=== PATIENT | female | born 1945 | race Caucasian/White ===

== ENCOUNTER 2016-08-18 15:42 | Observation (INO) | payer OTHER ==
[~2016-08-18] VITALS: Ht 162.6 cm; Wt 73.5 kg
[~2016-08-18 15:42] MED LIST: ASPIRIN EC81 M1 PO; AUGMENTIN 875 M1 TAB PO; CARDIZEM 60 MG60 MG PO; COUMADIN 6 MG TA6 MG PO; COUMADIN2 M1 PO; COUMADIN4 M1 PO; COZAAR25 M1 PO; DILTIAZEM 24HR240 MG PO; FERROUS SULFAT325 M1 PO; K-DUR 20MEQ TA20 MEQ PO; LASIX20 MG PO; LASIX40 MG PO; LOPRESSOR 25MG25 MG PO; METOPROLOL TART50 MG PO; PREDNISONE50 MG PO; PROAIR HFA0.09 MG/Ac PO; SYMBICORT 160/41 PUF INH; TOPROL XL50 M1 PO; TYLENOL WITH C1 EACH PO; WARFARIN SODIUM4 MG PO; ZOCOR40 M1 PO; [UNRECOGNIZED DRUG - OTHER] TOP
--- NOTE | 2016-08-18 16:21 | ED GENERAL ADULT ---
History of Present Illness General Chief Complaint: General Adult Stated Complaint: ABNORMAL LABS Source: patient Exam Limitations: no limitations Vital Signs & Intake/Output Vital Signs & Intake/Output Vital Signs Date Time Temp Pulse Resp B/P B/P Pulse O2 O2 Flow FiO2 Mean Ox Delivery Rate 08/19 0240 98.7 77 18 139/63 98 Room Air 08/18 2253 97.9 72 18 99/52 97 Room Air 08/18 2150 97.2 74 18 104/52 98 Room Air 08/18 2100 98.1 78 18 108/70 98 Room Air 08/18 1913 97.5 80 18 109/55 98 Room Air 08/18 1632 Room Air 08/18 1544 97.4 103 20 131/65 93 Room Air ED Intake and Output 08/19 0000 08/18 1200 Intake Total 360 Output Total Balance 360 Intake, Oral 360 Patient 162 lb Weight Weight Reported by Patient Measurement Method Allergies Coded Allergies: NO KNOWN ALLERGIES (07/17/15) Reconcile Medications Allopurinol 300 MG TABLET 1 TAB PO DAILY GOUT (Reported) Aspirin (Ecotrin*) 81 MG TABLET.DR 1 TAB PO DAILY HEART/BLOOD (Reported) Diltiazem HCl (Diltiazem 24HR ER) 240 MG CAP.ER.24H 1 CAP PO DAILY BP ( Reported) Furosemide (Lasix) 40 MG TABLET 1 TAB PO DAILY DIURETIC (Reported) Losartan Potassium (Cozaar) 25 MG TABLET 1 TAB PO QPM HIGH BLOOD PRESSURE ( Reported) Metoprolol Succ XL (Toprol Xl) 50 MG TAB.ER.24H 1 TAB PO DAILY BP (Reported) Simvastatin (Zocor*) 40 MG TABLET 1 TAB PO QPM CHOLESTEROL (Reported) Warfarin Sodium (Coumadin) 2 MG TABLET 1 TAB PO QMON BLOOD THINNER (Reported) Warfarin Sodium 4 MG TABLET 1 TAB PO AD BLOOD THINNER (Reported) Triage Note: PT TO ED FOR BLOOD TRANSFUSION. PT HAD OUT PATIENT LABS FOR INR CHECK FOR COUMADIN LEVEL, PT HAD TOLD DR ALVARADO THAT SHE HAS BEEN FEELING WEAK, SO A CBC WAS ALSO DRAWN. PT'S H&H WAS FOUND TO BE 6.[address] ALVARADO'S OFFICE CALLED PT AND ADVISED HER TO COME TO ED FOR BLOOD TRANSFUSION. PT DENIES PAIN, C/P, DIFF BREATHING. APPEARS PALE. Triage Nurses Notes Reviewed? yes Onset: Gradual Duration: hour(s):, continues in ED Severity: moderate HPI: Patient presents for evaluation of generalized weakness as the results of an anemia. She states that her doctor sent her for blood counts today along with her usual INR due to her weakness. She was told of the blood counts are very low and that she should go to the emergency department for evaluation. The patient is describing a mild to moderate generalized weakness but otherwise denies any associated bleeding melena or pain. (GAMA WILLIS,EMILIANA Jorge) Past History Travel History Traveled to [place] past 21 day No Medical History Any Pertinent Medical History? 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 Relation not specified for: FH: hyperthyroidism Graves' disease Hx Contributory? No (GAMA WILLIS,EMILIANA Jorge) Review of Systems Review of Systems Constitutional: Reports: weakness. EENTM: Reports: no symptoms. Respiratory: Reports: no symptoms. Cardiovascular: Reports: no symptoms. GI: Reports: no symptoms. Genitourinary: Reports: no symptoms. Musculoskeletal: Reports: no symptoms. Skin: Reports: no symptoms. Neurological/Psychological: Reports: no symptoms. Hematologic/Endocrine: Reports: no symptoms. Immunologic/Allergic: Reports: no symptoms. All Other Systems: Reviewed and Negative (GAMA WILLIS,EMILIANA Jorge) Physical Exam Physical Exam General Appearance: see below Comments: Gen.: Well-nourished, well-developed, no acute respiratory distress. Head: Normocephalic, atraumatic. Eyes: Normal inspection bilaterally, pale palpebral conjunctiva Ears: Normal inspection bilaterally Nose: Normal inspection Throat/mouth : Moist mucosa Neck: Supple, full range of motion, no goiter Heart: Regular rate and rhythm, no murmurs rubs or gallops Lungs: Clear to auscultation bilaterally with normal air entry Chest: Nontender Back: Normal range of motion Abdomen: Soft, nontender, nondistended, normal bowel sounds Extremities: Normal range of motion grossly, equal radial pulses, no cyanosis clubbing or edema Neurologic: Cranial nerves grossly intact, speech is clear Skin: warm and dry Psychiatric: Calm, cooperative, no apparent delusions or hallucinations Rectal: Heme-negative stool residue Core Measures ACS in differential dx? No CVA/TIA Diagnosis: No Severe Sepsis Present: No Septic Shock Present: No (GAMA WILLIS,EMILIANA Jorge) Progress Differential Diagnoses I considered the following diagnoses in my evaluation of the patient: GI bleed, iron deficiency, other occult blood loss Plan of Care: Orders Procedure Date/time Status Regular Diet 08/19 B Active Discharge Patient 08/19 0336 Active BLOOD PRODUCT PICKUP 08/18 212 Active Intake & Output 08/18 191 Active Misc Message 08/18 184 Active ED Holding Orders 08/18 1845 Active Vital Signs 08/18 184 Active Code Status 08/[address] in observation 08/18 1801 Active Patient Data 08/18 180 Active BLOOD PRODUCT PICKUP 08/18 1747 Active TOTAL IRON BINDING CAPACITY 08/18 1621 Complete RETICULOCYTE COUNT 08/18 1621 Complete FERRITIN 08/18 1621 Complete SERUM IRON 08/18 1621 Complete TYPE & SCREEN (NOT X-MATCH) 08/18 1621 Complete LEUKOCYTE POOR (PACKED CELLS) 08/18 1621 Active Laboratory Tests 08/18/16 1625: Iron 29 L, TIBC 522 H, Ferritin 8.4 L, Retic Count 3.67 H Initial ED EKG: none Hand-Off Endorsed To: TARIK MCFADDEN MD Endorsed Time: 1915 Pending: CT (GAMA WILLIS,EMILIANA Jorge) Departure Departure Condition: Stable Clinical Impression Primary Impression: Symptomatic anemia Referrals: MERCY CURTIS MD (PCP/Family) Departure Forms: Customer Survey General Discharge Information Observation Note Physician Advisor Notified: EMILIANA MARTINEZ DO Place Patient In: ED Observation Rationale for Observation: My rational for observation is as follows patient has symptomatic anemia secondary to a seriously low hematocrit and hemoglobin. This has substantially decreased her oxygen carrying capacity of her blood and has resulted in generalized weakness. Should she continue to drop her hematocrit and hemoglobin she would be at risk of chest pain, shortness of breath, palpitations and syncope. I feel she now requires urgent blood transfusion and reevaluation of hematocrit and hemoglobin for appropriate response. She should also be reevaluated clinically to assess for improvement in her generalized weakness. I do not feel she is a good candidate for outpatient transfusion given her generalized weakness and the possibility of provoking the adverse consequences noted above.. (EMILIANA MALLOY MD) Departure Disposition: HOME OR SELF CARE (TARIK MCFADDEN MD) Critical Care Note Critical Care Note Critical Care Time: non-applicable (TARIK MCFADDEN MD) ED Attending Observation Initial Observation Note: I have seen and personally examined SUE LEW on 08/18/16 at 1801. I agree with the current emergency department documentation. The disposition (admission or discharge) is uncertain at this time, she needs a period of observation for the following reason(s): SEE OBSERVATION NOTE. The ED Nurse caring for this patient has been personally informed as to what the patient is being observed for. (EMILIANA MALLOY MD) Observation Re-Evaluation: I have reevaluated SUE LEW on 08/18/16 at 2157. The physical findings that support the continued need to observe this patient include transfusion for symptomatic anemia. Observation Discharge: I have reevaluated SUE LEW on 08/19/16 at 0337. The patient is: (x): Stable for discharge (): To be admitted to Nursing Floor (): To be placed in Observation on Nursing Floor (): For transfer to other facility The patient was being observed for symptomatic anemia As a result of that observation, I have determined patient may be discharged home with outpatient follow up. (TARIK MCFADDEN MD)
[2016-08-18] MEDS ORDERED: COUMADIN2 M1 PO (16:35)
[2016-08-18] MEDS ORDERED: WARFARIN SODIUM4 M1 PO (16:35)
[2016-08-18] MEDS ORDERED: LASIX40 M1 PO (16:36)
[2016-08-18] MEDS ORDERED: ALLOPURINOL300 M1 PO (16:37)
[2016-08-19 02:40] VITALS: BP 139/63
[2016-08-20] MEDS ORDERED: FERROUS SULFAT325 M2 PO (09:48)
== END 2016-08-20 20:18 ==
LOC: ERH 15:42 → ERHI 18:01
PROVIDERS: ADMIT Emergency Medicine
DX: D64.9 Anemia, unspecified (principal); Z95.2 Presence of prosthetic heart valve; Z79.01 Long term (current) use of anticoagulants; Z72.0 Tobacco use; I13.0 Hypertensive heart and chronic kidney disease with heart failure and stage 1 through stage 4 chronic kidney disease, or unspecified chronic kidney disease; N18.3 Chronic kidney disease, stage 3 (moderate); I50.32 Chronic diastolic (congestive) heart failure; I48.91 Unspecified atrial fibrillation; I48.92 Unspecified atrial flutter; I35.0 Nonrheumatic aortic (valve) stenosis; I24.8 Other forms of acute ischemic heart disease; I73.9 Peripheral vascular disease, unspecified; I25.10 Atherosclerotic heart disease of native coronary artery without angina pectoris; E78.5 Hyperlipidemia, unspecified; J44.9 Chronic obstructive pulmonary disease, unspecified
CPT/HCPCS: 86920; 96374; 96376; P9016

== ENCOUNTER 2016-08-19 13:06 | Inpatient (IN) | payer OTHER ==
[~2016-08-19] VITALS: Ht 162.6 cm; Wt 71.2 kg
[~2016-08-19 13:06] MED LIST changes: +ALLOPURINOL300 M1 PO; +LASIX40 M1 PO; +WARFARIN SODIUM4 M1 PO
--- NOTE | 2016-08-19 13:30 | ED AMS/SEIZURE/WEAK/DIZZY ---
History of Present Illness General Chief Complaint: General Adult Stated Complaint: SENT BY ANA FOR ADMISSION Source: patient, old records Exam Limitations: no limitations Vital Signs & Intake/Output Vital Signs & Intake/Output Vital Signs Date Time Temp Pulse Resp B/P B/P Pulse O2 O2 Flow FiO2 Mean Ox Delivery Rate 08/19 1712 75 18 122/58 96 08/19 1523 96.0 82 20 131/63 98 Room Air 08/19 1323 97.2 97 20 148/70 96 Room Air Allergies Coded Allergies: NO KNOWN ALLERGIES (07/17/15) Reconcile Medications Allopurinol 300 MG TABLET 1 TAB PO DAILY GOUT (Reported) Aspirin (Ecotrin*) 81 MG TABLET.DR 1 TAB PO DAILY HEART/BLOOD (Reported) Diltiazem HCl (Diltiazem 24HR ER) 240 MG CAP.ER.24H 1 CAP PO DAILY BP ( Reported) Furosemide (Lasix) 40 MG TABLET 1 TAB PO DAILY DIURETIC (Reported) Losartan Potassium (Cozaar) 25 MG TABLET 1 TAB PO QPM HIGH BLOOD PRESSURE ( Reported) Metoprolol Succ XL (Toprol Xl) 50 MG TAB.ER.24H 1 TAB PO DAILY BP (Reported) Simvastatin (Zocor*) 40 MG TABLET 1 TAB PO QPM CHOLESTEROL (Reported) Warfarin Sodium (Coumadin) 2 MG TABLET 1 TAB PO QMON BLOOD THINNER (Reported) Warfarin Sodium 4 MG TABLET 1 TAB PO AD BLOOD THINNER (Reported) Triage Note: PT PRESENTS TO ER STATING DR PEREZ SENT HER IN FOR ADMISSION. PT STATES SHE WAS HERE YESTERDAY FOR A BLOOD TRANSFUSION AND WENT HOME BECAUSE SHE DIDN'T WANT TO STAY. PT DENIES ANY COMPLAINTS BUT STATES DOCTOR WANTED TO FIND SOURCE OF BLEEDING. PT DENIES SOB, PAIN, OR ANY RECTAL BLEEDING Triage Nurses Notes Reviewed? yes Onset: Abrupt Duration: day(s): (1), constant Timing: recent history Injury Environment: home Severity: mild Severity Numbers: 1 No Modifying Factors: none Associated Symptoms: DENIES HPI: 71-year-old female with history of A. 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 Patient was seen here yesterday after she was found to be anemic require 2 units of blood. The patient had a negative guaiac exam at the time she denies any black or bloody stools no chest pain shortness of breath, pain nausea vomiting. She denies any vaginal bleeding no known source of her anemia. The patient's Coumadin is being withheld as her levels were elevated and the source of her anemia was not known she was sent in by her grinder set up operator jig for further workup. The patient is without any complaints currently (SYEDA KRAUSE) Past History Travel History Traveled to [place] past 21 day No Medical History Any Pertinent Medical History? 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 Relation not specified for: FH: hyperthyroidism Graves' disease Hx Contributory? No (SYEDA KRAUSE) Review of Systems Review of Systems Constitutional: Reports: see HPI. Comments Review of systems: See HPI, All other systems negative. Constitutional, no chills no fever, no malaise no weight loss HEENT: No visual changes no sore throat no congestion, no ear pain Cardiovascular: No chest pain , no palpitation Skin: no rashes, no change in skin Respiratory: No dyspnea no cough no sputum no hemoptysis GI: No nausea no vomiting, no diarrhea, : No dysuria No hematuria, no frequency Muscle skeletal: No joint pain, no joint swelling, no back pain, no neck pain, Neurologic: no headache Psych: No stress Heme/endocrine: No bruising no bleeding Immunology: No lymphadenopathy (SYEDA KRAUSE) Physical Exam Physical Exam General Appearance: well developed/nourished, no apparent distress, alert, awake Comments: Well-developed well-nourished person in no acute distress HEENT: Normal EENT exam; PERRL, EOMI, HEAD is atraumatic. moist mucous membranes. Neck: Supple, no lymphadenopathy, normal range of motion Back: Nontender, no CVA tenderness. Full range of motion Cardiovascular: Regular rate and rhythms no murmurs rubs Respiratory: Chest nontender.There were no bony deformities, no asymmetry. No respiratory distress. Patient speaking in full complete sentences. Breath sounds clear to auscultation bilaterally: NO W/R/R Abdomen: Soft, nontender nondistended, no appreciable organomegaly. Normal bowel sounds. No rebound/guarding, Extremity: No edema, full range of motion of extremities Neuro: Alert oriented x3, motor sensory normal, There were no obvious focal neurologic abnormalities. Skin: No appreciable rash on exposed skin, skin is warm and dry. Psych: Mood and affect is normal, memory and judgment is normal. Core Measures ACS in differential dx? Yes CVA/TIA Diagnosis: No Severe Sepsis Present: No Septic Shock Present: No (MICHAEL ANDREWS,SYEDA) Progress Differential Diagnosis: ANEMIA, RETROPERITONEAL HEMATOMA, ELECTROLYTE ABNORMALITY Plan of Care: Orders Procedure Date/time Status Heart Healthy Diet 08/20 B Active LIPID PANEL 08/20 0600 Active BASIC ELECTROLYTES PLUS BUN&CR 08/20 0600 Active TROPONIN LEVEL 08/20 0400 Active PROTHROMBIN TIME 08/20 0400 Active CBC WITHOUT DIFFERENTIAL 08/20 0400 Active EKG 08/20 0400 Active Heart Healthy Diet 08/19 D Complete TROPONIN LEVEL 08/19 2200 Active CBC WITHOUT DIFFERENTIAL 08/19 2200 Active EKG 08/19 2200 Active Code Status 08/19 1715 Active ED Holding Orders 08/19 1604 Active Admit to inpatient 08/19 1604 Active Vital Signs 08/19 1604 Active Code Status 08/19 1604 Complete ECHOCARDIOGRAM 08/19 1602 Active OXYGEN SETUP (GEN) 08/19 1600 Active Pathway - chart 08/19 1600 Active House Staff 08/19 1600 Active Patient Data 08/19 1533 Active PHOSPHORUS 08/19 1339 Complete MAGNESIUM 08/19 1339 Complete MISTAKE 08/19 1335 Active Telemetry/Rn Primary Care 08/19 1329 Active TROPONIN LEVEL 08/19 1329 Complete PARTIAL THROMBOPLASTIN TIME 08/19 1329 Complete PROTHROMBIN TIME 08/19 1329 Complete COMPREHENSIVE METABOLIC PANEL 08/19 1329 Complete CBC WITHOUT DIFFERENTIAL 08/19 1329 Complete EKG 08/19 1329 Active Lab Add-on Test 08/19 UNK Active VTE Mechanical Prophylaxis 08/19 UNK Active Vital Signs 08/19 UNK Active Intake & Output 08/19 UNK Active Hemoccult 08/19 UNK Active Current Medications Sig/Darlene Start time Last Medication Dose Stop Time Status Admin Allopurinol 300 MG DAILY 08/20 1000 AC (Zyloprim) Diltiazem HCl 240 MG DAILY 08/20 1000 AC (Cardizem CD) Ferrous Sulfate 325 MG BID 08/20 1000 UNVr (Feosol) Furosemide 40 MG DAILY 08/20 1000 AC (Lasix) Metoprolol Succinate 50 MG DAILY 08/20 1000 AC (Toprol Xl) Atorvastatin Calcium 20 MG 1700 08/19 1700 AC (Lipitor) Acetaminophen 650 MG Q6P PRN 08/19 1600 AC (Tylenol) Acetaminophen/ 1 TAB Q6P PRN 08/19 1600 AC Hydrocodone Bitart (Vicodin) Morphine Sulfate 4 MG Q4P PRN 08/19 1600 AC (Morphine) Laboratory Tests 08/19/16 1339: Anion Gap 11, Estimated GFR 32 L, BUN/Creatinine Ratio 19.4, Glucose 97, Calcium 9.8, Phosphorus 3.0, Magnesium 2.1, Total Bilirubin 0.6, AST 24, ALT 22, Alkaline Phosphatase 131 H, Troponin I 0.29 *H, Total Protein 6.6, Albumin 4.0, Globulin 2.6, Albumin/Globulin Ratio 1.5, PT 14.3 H, INR 1.37 H, APTT 28, CBC w Diff NO MAN DIFF REQ, RBC 3.71 L, MCV 81.9, MCH 26.7 L, RDW 18.6 H, MPV 9.1 , Gran % 66.9, Lymphocytes % 17.0 L, Monocytes % 9.1, Eosinophils % 6.7 H, Basophils % 0.3, Absolute Granulocytes 5.8, Absolute Lymphocytes 1.5, Absolute Monocytes 0.8 H, Absolute Eosinophils 0.6, Absolute Basophils 0, PUBS MCHC 32.5 L Labs ordered old records reviewed patient's H&H yesterday 6 and guaiac was negative case discussed with Dr. MARTINEZ who spoke with dr perez Discussed with the patient on her lab results she again is resting comfortably in no apparent distress despite elevated troponin case is discussed with -given lab findings he does not believe patient requires urgent colonoscopy case was discussed with Dr. perez agrees with plan, no heparin at this time, pt has no complaints CASE D/W DR WESTFALL WILL ADMIT (SYEDA KRAUSE) Initial ED EKG: nsr at 80, nonspecific st seg changes, normal axis Prior EKG: changed (09/2014) (SYEDA KRAUSE) Departure Departure Time of Disposition: 1510 Disposition: STILL A PATIENT Condition: Stable Clinical Impression Primary Impression: Elevated troponin Secondary Impressions: Acute electrocardiogram changes, Anemia, Subtherapeutic international normalized ratio (INR) Referrals: MERCY CURTIS MD (PCP/Family) Departure Forms: Customer Survey General Discharge Information Admission Note Spoke With: IKE WESTFALL MD Documentation of Exam: Documentation of any treatments & extenuating circumstances including Concerns Regarding Discharge (functional status, medication knowledge or non-compliance, living conditions, etc.) that warrant an admission rather than observation: [ Trend labs turn troponin telemetry monitoring EKG cardiology consult possible GI consult, patient is subtherapeutic INR premature discharge and be medically harmful (SYEDA KRAUSE) PA/MANAGER CHINESE Co-Sign Statement Statement: ED Attending supervision documentation- [X] I saw and evaluated the patient. I have also reviewed all the pertinent lab results and diagnostic results. I agree with the findings and the plan of care as documented in the PA's/MANAGER CHINESE's documentation. [X] I have reviewed the ED Record and agree with the PA's/MANAGER CHINESE's documentation. [] Additions or exceptions (if any) to the PAs/MANAGER CHINESE's note and plan are summarized below: [] (EMILIANA MARTINEZ DO
[2016-08-19 13:59] LABS: PT 14.3 SEC (9.4-12.5); PTT 28 SEC (25-37)
[2016-08-19 14:02] LABS: ABSOLUTE BASOPHIL COUNT 0 /CUMM (0.0-0.2); ABSOLUTE EOSINOPHIL COUNT 0.6 /CUMM (0.0-0.7); ABSOLUTE GRANULOCYTE CT 5.8 /CUMM (1.4-6.5); ABSOLUTE LYMPH COUNT 1.5 /CUMM (1.2-3.4); ABSOLUTE MONOCYTE COUNT 0.8 /CUMM (0.10-0.60); BASOPHIL % 0.3 % (0.0-2.0); EOSINOPHIL % 6.7 % (0-5); GRANULOCYTE % 66.9 % (42.2-75.2); MEAN CORPUSCULAR HGB 26.7 PG (27.0-31.0); MEAN CORPUSCULAR HGB CONC 32.5 G/DL (33.0-37.0); MEAN CORPUSCULAR VOLUME 81.9 FL (81.0-99.0); MEAN PLATELET VOLUME 9.1 FL (7.4-10.4); PLATELET COUNT 212 /CUMM (130-400); RBC DISTRIBUTION WIDTH 18.6 % (11.5-14.5); WHITE BLOOD CELL COUNT 8.7 /CUMM (4.8-10.8)
[2016-08-19 14:27] LABS: RED BLOOD CELL CT 3.71 /CUMM (4.20-5.40)
[2016-08-19 14:28] LABS: HEMATOCRIT 30.4 % (37-47)
--- NOTE | 2016-08-19 15:40 | History & Physical ---
NADIRAAURELIO 08/19/16 1538: General Information and HPI MD Statement: I have seen and personally examined SUE LEW and documented this H&P. The patient is a 71 year old F who presented with a patient stated chief complaint of [sent in by Dr. Dunham]. Source of Information: patient Exam Limitations: no limitations History of Present Illness: 71-year-old female with a past medical history of aortic replacement with metallic valve, currently on Coumadin, hypertension, atrial flutter, CHF, CKD stage III, peripheral vascular disease status post left carotid endarterectomy with internal jugular weaning patch angioplasty in July 2015 was sent in by her adobe layer helper Dr. Tonny Costello for evaluation. She states that she was getting routine blood workl done for her INR on 08/18/16, when she c/o wekaness in her lwoer extermities which prompted her adobe layer helper Dr. Dunham, to order CBC which showed taht she was anemic to 6. She states she was asked to come to the ED. She was guiac negative, and was transfused with 2 PRBCs, and discharged home. She called Dr. Dunham's office this AM to inquire when she can resume her Coumadin because her INR was supratherpeutic to 6.0 last and Coumadin was on hold since. She was advised to go to he ER for further evaluation. Patientd denies any CP, SOB, LOUIS, nausea, vomiting, palpitations, dizziness, black tarry stools, weight loss, night sweats, recent history of infection, sore throat, fever, chills. Allergies/Medications Allergies: Coded Allergies: NO KNOWN ALLERGIES (07/17/15) Home Med list Allopurinol 300 MG TABLET 1 TAB PO DAILY GOUT (Reported) Aspirin (Ecotrin*) 81 MG TABLET.DR 1 TAB PO DAILY HEART/BLOOD (Reported) Diltiazem HCl (Diltiazem 24HR ER) 240 MG CAP.ER.24H 1 CAP PO DAILY BP ( Reported) Furosemide (Lasix) 40 MG TABLET 1 TAB PO DAILY DIURETIC (Reported) Losartan Potassium (Cozaar) 25 MG TABLET 1 TAB PO QPM HIGH BLOOD PRESSURE ( Reported) Metoprolol Succ XL (Toprol Xl) 50 MG TAB.ER.24H 1 TAB PO DAILY BP (Reported) Simvastatin (Zocor*) 40 MG TABLET 1 TAB PO QPM CHOLESTEROL (Reported) Warfarin Sodium (Coumadin) 2 MG TABLET 1 TAB PO QMON BLOOD THINNER (Reported) Warfarin Sodium 4 MG TABLET 1 TAB PO AD BLOOD THINNER (Reported) Past History Travel History Traveled to [place] past 21 day No Medical History Neurological: NONE EENT: NONE Cardiovascular: AFIB, aortic stenosis, CAD, diastolic CHF, hypertension, hyperlipidemia, PVD, AORTIC VALVE REPLACEMENT Respiratory: COPD Gastrointestinal: NONE Hepatic: NONE Renal: NONE Musculoskeletal: NONE Psychiatric: NONE Endocrine: NONE Blood Disorders: NONE Cancer(s): NONE COMMUNICATIONS COORDINATOR/Reproductive: NONE Surgical History Surgical History: AORTIC VALVE REPLACEMENT Past Family/Social History Family History Relations & Conditions if any SISTER MOTHER, . Relation not specified for: FH: hyperthyroidism Graves' disease Psychosocial History Where do you live? Home Who Do You Live With? self Services at Home: None Primary Language: Peruvian Smoking Status: Current Everyday Smoker (1/2 pack per day) ETOH Use: denies use Illicit Drug Use: denies illicit drug use Functional Ability ADLs Independent: dressing, eating, toileting, bathing. Ambulation: independent Employment History Employment Employed Profession/Employer [employer] Review of Systems Review of Systems Constitutional: Denies: chills, diaphoresis, fever, malaise, weakness. EENTM: Denies: visual changes. Cardiovascular: Denies: chest pain, orthopena, palpitations, peripheral edema. Respiratory: Denies: cough, hemoptysis, orthopnea, short of breath, sputum production, wheezing. GI: Denies: abdominal pain, constipation, diarrhea, melena, nausea, bloody stool, changes in stool, vomiting. Genitourinary: Denies: discharge, frequency, hematuria, hesitation, nocturia. Musculoskeletal: Reports: muscle pain. Denies: back pain, joint pain, joint swelling. Neurological/Psychological: Denies: headache, numbness, tingling, tremors, unable to move lower ext, unable to move upper ext, weakness. Hematologic/Endocrine: Denies: bruising, bleeding. Exam & Diagnostic Data Last 24 Hrs of Vital Signs/I&O Vital Signs Date Time Temp Pulse Resp B/P B/P Pulse O2 O2 Flow FiO2 Mean Ox Delivery Rate 08/19 1523 96.0 82 20 131/63 98 Room Air 08/19 1323 97.2 97 20 148/70 96 Room Air Intake & Output 08/19 1600 08/19 0800 08/19 0000 Intake Total Output Total Balance Patient 162 lb Weight Physical Exam General Appearance Alert, Oriented X3, Cooperative, No Acute Distress Skin No Rashes Skin Temp/Moisture Exam: Warm/Dry Sepsis Skin Exam (color): Normal for Ethnicity HEENT Atraumatic, PERRLA, EOMI, dry mucous membranes Neck Supple, No JVD, No thryomegaly, +2 Carotid Pulse wo Bruit, No LAD Cardiovascular Regular Rate, Normal S1, Normal S2, has a sytolic click murmer heard best at RSB Lungs Clear to Auscultation, Normal Air Movement Abdomen Normal Bowel Sounds, Soft, No Tenderness Neurological Normal Speech, Strength at 5/5 X4 Ext, Normal Tone, Sensation Intact, Cranial Nerves 3-12 NL, Reflexes 2+ Extremities b/l 2+ pitting edema Vascular Normal Pulses, Pulses Symmetrical Last 24 Hrs of Labs/Donald: Laboratory Tests 08/19/16 1339: Anion Gap 11, Estimated GFR 32 L, BUN/Creatinine Ratio 19.4, Glucose 97, Calcium 9.8, Total Bilirubin 0.6, AST 24, ALT 22, Alkaline Phosphatase 131 H, Troponin I 0.29 *H, Total Protein 6.6, Albumin 4.0, Globulin 2.6, Albumin/ Globulin Ratio 1.5, PT 14.3 H, INR 1.37 H, APTT 28, CBC w Diff NO MAN DIFF REQ , RBC 3.71 L, MCV 81.9, MCH 26.7 L, RDW 18.6 H, MPV 9.1, Gran % 66.9, Lymphocytes % 17.0 L, Monocytes % 9.1, Eosinophils % 6.7 H, Basophils % 0.3, Absolute Granulocytes 5.8, Absolute Lymphocytes 1.5, Absolute Monocytes 0.8 H, Absolute Eosinophils 0.6, Absolute Basophils 0, PUBS MCHC 32.5 L Diagnostic Data EKG Results NSR, HR: 85, normal axis, T waves inversions in II, III, aVF, aVL, Lead I, and precordial leads, taht are essentiallyunchnaged from previous EKG. Assessment/Plan Assessment: 71-year-old female with a past medical history of aortic replacement with metallic valve, currently on Coumadin, hypertension, atrial flutter, CHF, CKD stage III, peripheral vascular disease status post left carotid endarterectomy with internal jugular weaning patch angioplasty in July 2015 was sent in by her adobe layer helper Dr. Dunham for evaluation. She was seen in the ER yesterday and was found to be anemic requiring 2 units of blood. She did negative guaiac exam at that time and denied any black or tarry stools. Vitals at the time of admission blood pressure 131/63, respiratory rate 20, pulse 82, afebrile saturating 98% on room air. Labs pertinent for white blood cell count of 8700, and normocytic anemia with an H&H of 9.9/30.4, platelet count 212,000. Serum chemistries revealed a sodium 141, potassium 4.4, bicarbonate 24, anion gap of 11, BUN 31 with a creatinine of 1.6 (baseline is around 1.4-1.6), LFTs showed a total bili of 0.6, AST/L2 24/22, alkaline phosphatase of 03/08/1947 for septic troponin at 0.29. Her INR was subtherapeutic at 1.37. Last echocardiogram was done in September 2014 showed mildly hypokinetic septum, abnormal septal motion consistent with post operative state, no other regional wall motion abnormalities, left ventricular ejection fraction at 55%. 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 Since her labs came back with elevated troponin, case was discussed with -given lab findings he does not believe patient requires urgent colonoscopy. Case was discussed with Dr. Dunham agrees with plan, no heparin at this time. Assessment and plan Admit on Telemetry given elevated troponins. # Elevated troponins - EKG changes are chronic. - Most likely 2/2 demand ischemia given anemia. - Will start heparin for now after CT r/o retroperitoneal bleed (spoke with patient has metallic valve), and trend troponins and EKG - F/U echo #Anemia Acute on chronic S/P 2 PRBC's yesterday No obvious source She was guiac negative in the ER GI consult - spoke with Dr. Roldan who will see the patient in AM. For now recommends getting a CT Abd/Pelvis to r/o retroperitoneal bleed. Will hepariniza once r/o. Hold aspirin as she will be on heparin CBC q8 hrs for now type and cross match Holding Coumadin, and start on Heparin Holding Losartan so that bloodpressure does not drop precipitiously #Aortic replacement with metallic valve For now holding Coumadin Start her on IV Heparin pedning results of CT Abd/Pelvis - DVT prophylaxis - On IV heparin - Diet - Heart healthy - Code Status Full Code As Ranked By This Provider Problem List: 1. Subtherapeutic international normalized ratio (INR) 2. Supratherapeutic INR 3. Elevated troponin 4. Anemia Core Measures/Miscellaneous Acute Coronary Syndrome ACS Diagnosis: No Cerebrovascular Accident CVA/TIA Diagnosis: No Congestive Heart Failure CHF Diagnosis: No VTE (View Protocol) VTE Risk Factors: Age > 40 [facility] prophylaxis d/t: No contraindications No VTE Pharm Prophylaxis d/t: Active bleeding VTE Diagnosis: No VTE Type: NONE VTE Confirmed by (Test): NONE Sepsis (View Protocol) Severe Sepsis Present: No Septic Shock Septic Shock Present: No Miscellaneous Documentation Attending Case Discussed With: Dr. Westfall Primary Care Physician: MERCY CURTIS MD Patient sees these Specialists Dr. Dunham Level of Patient Care: Telemetry Consults Needed: 1 Consulting Specialty: Cardiology Consults Needed: 2 Consulting Specialty: Gastroenterology Resident Review Statement Resident Statement: admitted by resident IKE WESTFALL MD 08/19/164: Attending MD Review Statement Attending Statement Attending MD Statement: examined this patient, discuss w/resident/PA/GSA COORDINATOR, agreed w/resident/PA/GSA COORDINATOR, reviewed EMR data (avail) Attending Assessment/Plan: 71F PMH aortic replacement with metallic valve on Coumadin, hypertension, atrial flutter, CHF, CKD stage III, peripheral vascular disease status post left carotid endarterectomy, seen in ED yesterday for generalized weakness, found to have acute anemia with Hgb 6, transfused 2 units pRBC and discharged home. Returns today after being sent in by adobe layer helper for further workup of anemia and potential bleed, not advised to restart Coumadin due to risk of bleed. Of note, INR was 6.87 on 08/15 which improved to 1.80 on 08/18. The patient is asymptomatic, displays no signs of GI bleed, brown stool, hemodynamically stable. EKG found to have TWI in lateral leads from prior, troponin level 0.23. Denies chest pain. Admit to tele, start heparin drip, cardiology consult, trend enzymes and EKG, monitor INR, peripheral smear, check iron studies and B12, GI consult, continue home medications.
--- NOTE | 2016-08-19 20:06 | CT SCAN REPORT ---
EXAMINATION: CT ABDOMEN AND PELVIS WITHOUT CONTRAST CLINICAL INFORMATION: Anemia. Guaiac negative. Evaluate for retroperitoneal bleeding. Transfusion requirement. The patient is on Coumadin COMPARISON: Portions of a previous study 07/03/09 TECHNIQUE: Multidetector volumetric imaging was performed from the superior aspect of the liver through the pubic symphysis. Sagittal and coronal reformatted images were obtained on the technologist's workstation. DLP: 289 mGy-cm FINDINGS: LUNG BASES: No fluid collection in the visualized lower chest. Evidence of previous sternotomy. There is a small sliding-type hiatal hernia. There are some scattered tiny nonspecific lung base opacities. LIVER, GALLBLADDER, AND BILIARY TREE: There are at least 2 tiny circumscribed low attenuating liver lesions. These are unchanged and may represent cysts. There is no distention of the gallbladder. There is no opaque gallstone. There is no significant biliary dilation. PANCREAS: No convincing abnormality. SPLEEN: The spleen is not enlarged. No focal abnormality. ADRENAL GLANDS: Mild diffuse prominence without a suspicious mass KIDNEYS AND URETERS: Atrophic left kidney. There are some round low attenuating left renal masses. There may be some faint hyperdensity in the medial upper left kidney. No significant dilation of the urinary collecting system on either side. BLADDER: The bladder is not well-distended. No focal abnormality. GASTROINTESTINAL TRACT: No localized area of colonic wall thickening. The appendix is normal. There is no significant small bowel dilation. The stomach is not distended. There is a sliding-type hiatal hernia. ABDOMINAL WALL: No significant hernia is appreciated. LYMPH NODES: There are no measurably enlarged abdominal or pelvic lymph nodes. There is no free intraperitoneal fluid. There is no evidence of a retroperitoneal hemorrhage. The iliac is an psoas muscles are within normal limits and symmetric. There is no large body wall hematoma. VASCULAR: There is extensive atherosclerotic calcification. There is no abdominal aortic aneurysm. There is no evidence of a retroperitoneal hemorrhage. There is extensive atherosclerotic plaque including the superior mesenteric artery. PELVIC VISCERA: No suspicious abnormality of the uterus or adnexa. OSSEOUS STRUCTURES: There is marked volume loss at L1 with some bone protruding into the spinal canal. There is no surrounding hematoma. This was not present in 2010. IMPRESSION: No retroperitoneal hemorrhage. No intraperitoneal fluid. Atrophic left kidney. There is a small sliding-type hiatal hernia. There is marked deformity of L1. Chronicity uncertain. On imaging basis this appears chronic but I have no previous studies to confirm. This was not present in 2010
--- NOTE | 2016-08-19 21:35 | Admission Certification ---
Admission Certification Certification Statement - As attending physician, I certify that at the time of - admission, based on clinical presentation, severity of - symptoms, need for further diagnostic testing and - therapeutic interventions, and risk of adverse outcomes - without in-hospital treatment, in my clinical assessment, - this patient requires an acute hospital stay for a minimum - of two nights or longer. I have also considered psychsocial - factors such as support system, advanced age, financial - issues, cognitive issues, and failed out-patient treatments, - past re-admission history, safety of patient, and lack of - compliance as applicable. Specific rationale supporting this admission is: Acute anemia on Coumadin with elevated troponin
[2016-08-19 22:29] VITALS: BP 106/56
[2016-08-19 23:04] LABS: ABSOLUTE BASOPHIL COUNT 0 /CUMM (0.0-0.2); ABSOLUTE EOSINOPHIL COUNT 0.7 /CUMM (0.0-0.7); ABSOLUTE LYMPH COUNT 1.6 /CUMM (1.2-3.4); ABSOLUTE MONOCYTE COUNT 0.8 /CUMM (0.10-0.60); BASOPHIL % 0.6 % (0.0-2.0); EOSINOPHIL % 8.6 % (0-5); GRANULOCYTE % 61.7 % (42.2-75.2); HEMATOCRIT 29.1 % (37-47); MEAN CORPUSCULAR HGB 26.5 PG (27.0-31.0); MEAN CORPUSCULAR HGB CONC 32.2 G/DL (33.0-37.0); MEAN CORPUSCULAR VOLUME 82.3 FL (81.0-99.0); MEAN PLATELET VOLUME 9.4 FL (7.4-10.4); PLATELET COUNT 204 /CUMM (130-400); RBC DISTRIBUTION WIDTH 18.8 % (11.5-14.5); RED BLOOD CELL CT 3.54 /CUMM (4.20-5.40); WHITE BLOOD CELL COUNT 8.2 /CUMM (4.8-10.8)
[2016-08-20 04:31] LABS: ABSOLUTE BASOPHIL COUNT 0.1 /CUMM (0.0-0.2); ABSOLUTE EOSINOPHIL COUNT 0.8 /CUMM (0.0-0.7); ABSOLUTE GRANULOCYTE CT 4.8 /CUMM (1.4-6.5); ABSOLUTE MONOCYTE COUNT 0.8 /CUMM (0.10-0.60); BASOPHIL % 0.8 % (0.0-2.0); EOSINOPHIL % 9.6 % (0-5); GRANULOCYTE % 56.7 % (42.2-75.2); HEMATOCRIT 27.3 % (37-47); MEAN CORPUSCULAR HGB 26.5 PG (27.0-31.0); MEAN CORPUSCULAR HGB CONC 32.4 G/DL (33.0-37.0); MEAN CORPUSCULAR VOLUME 81.7 FL (81.0-99.0); MEAN PLATELET VOLUME 9.5 FL (7.4-10.4); PLATELET COUNT 189 /CUMM (130-400); RBC DISTRIBUTION WIDTH 18.4 % (11.5-14.5); RED BLOOD CELL CT 3.34 /CUMM (4.20-5.40); WHITE BLOOD CELL COUNT 8.5 /CUMM (4.8-10.8)
--- NOTE | 2016-08-20 05:46 | PN- Housestaff ---
See Addendum Subjective Follow-up For: - Elevated troponins 2/2 demand ischemia - Acute blood loss anemia - Sub therpeutic INR - Hx of mechanical aortic valve. Complaints: no complaints Tele-Events Since Last Visit: Sinus eliu 50-60's, no events. Subjective: Patient seen and examiend at bedside. Denies any chest pain, shortness of breath , palpitations, dizziness, lightheadedness, abdominal pain. She was started on hepari yesterday, after her CT abdomen showed no evidence of retroperitonela bleed. Review of Systems Constitutional: Denies: chills, fever. EENTM: Denies: visual changes. Cardiovascular: Denies: chest pain, orthopena, palpitations. Respiratory: Denies: cough, orthopnea, short of breath. Gastrointestinal: Denies: abdominal pain, constipation, diarrhea, nausea, vomiting. Genitourinary: Reports: no symptoms. Musculoskeletal: Reports: no symptoms. Neurological/Psychological: Denies: headache, numbness, tingling, tremors. Objective Last 24 Hrs of Vital Signs/I&O Vital Signs Date Time Temp Pulse Resp B/P B/P Pulse O2 O2 Flow FiO2 Mean Ox Delivery Rate 08/19 2229 98.9 73 20 106/56 96 Room Air 08/19 1712 75 18 122/58 96 08/19 1523 96.0 82 20 131/63 98 Room Air 08/19 1323 97.2 97 20 148/70 96 Room Air Intake & Output 08/20 0800 07/ 0000 08/19 1600 Intake Total 500 Output Total 350 Balance 150 Intake, Oral 500 Output, Urine 350 Patient 158 lb 162 lb Weight Weight Reported by Patient Measurement Method Physical Exam General Appearance: Alert, Oriented X3, Cooperative, No Acute Distress HEENT: Atraumatic, PERRLA, EOMI, Mucous Membr. moist/pink Neck: Supple, No JVD, No LAD Cardiovascular: Normal S1, Normal S2, No Murmurs Lungs: Clear to Auscultation, Normal Air Movement Abdomen: Normal Bowel Sounds, Soft, No Tenderness Neurological: Normal Gait, Normal Speech, Strength at 5/5 X4 Ext Extremities: No Clubbing, No Cyanosis, No Edema, Normal Pulses, No Tenderness/ Swelling Current Medications: Current Medications Sig/Darlene Start time Last Medication Dose Route Stop Time Status Admin Acetaminophen 650 MG Q6P PRN 08/19 1600 AC PO Acetaminophen/ 1 TAB Q6P PRN 08/19 1600 AC Hydrocodone Bitart PO Allopurinol 300 MG DAILY 08/20 1000 AC PO Atorvastatin Calcium 20 MG 1700 08/19 1700 AC 08/19 PO 205 Diltiazem HCl 240 MG DAILY 08/20 1000 AC PO Ferrous Sulfate 325 MG BID 08/20 1000 AC PO Furosemide 40 MG DAILY 08/20 1000 AC PO Heparin Sodium/ 25,000 UNIT Q24H 08/19 1800 AC 08/19 Dextrose IV 2045 Dextrose/Water 500 ML Metoprolol Succinate 50 MG DAILY 08/20 1000 AC PO Morphine Sulfate 4 MG Q4P PRN 08/19 1600 AC IV Last 24 Hrs of Lab/Donald Results Last 24 Hrs of Labs/Mics: Laboratory Tests 08/20/16409: Troponin I 0.28 *H 08/20/16 041: Anion Gap 9, Estimated GFR 34 L, BUN/Creatinine Ratio 19.3, Triglycerides 93, Cholesterol 144, LDL Cholesterol, Calc 83, HDL Cholesterol 43, Cholesterol/HDL Ratio 3, PT Pending, INR Pending, APTT Pending, CBC w Diff NO MAN DIFF REQ, RBC 3.34 L, MCV 81.7, MCH 26.5 L, RDW 18.4 H, MPV 9.5, Gran % 56.7, Lymphocytes % 23.9, Monocytes % 9.0, Eosinophils % 9.6 H, Basophils % 0.8, Absolute Granulocytes 4.8, Absolute Lymphocytes 2.0, Absolute Monocytes 0.8 H, Absolute Eosinophils 0.8, Absolute Basophils 0.1, PUBS MCHC 32.4 L 08/19/165: Troponin I 0.30 *H, CBC w Diff NO MAN DIFF REQ, RBC 3.54 L, MCV 82.3, MCH 26.5 L, RDW 18.8 H, MPV 9.4, Gran % 61.7, Lymphocytes % 19.2 L, Monocytes % 9.9 H, Eosinophils % 8.6 H, Basophils % 0.6, Absolute Granulocytes 5.0, Absolute Lymphocytes 1.6, Absolute Monocytes 0.8 H, Absolute Eosinophils 0.7, Absolute Basophils 0, PUBS MCHC 32.2 L 08/19/16 1339: Anion Gap 11, Estimated GFR 32 L, BUN/Creatinine Ratio 19.4, Glucose 97, Calcium 9.8, Phosphorus 3.0, Magnesium 2.1, Total Bilirubin 0.6, AST 24, ALT 22, Alkaline Phosphatase 131 H, Troponin I 0.29 *H, Total Protein 6.6, Albumin 4.0, Globulin 2.6, Albumin/Globulin Ratio 1.5, PT 14.3 H, INR 1.37 H, APTT 28, CBC w Diff MAN DIFF ORDERED, RBC 3.71 L, MCV 81.9, MCH 26.7 L, RDW 18.6 H, MPV 9.1, Gran % 66.9, Lymphocytes % 17.0 L, Monocytes % 9.1, Eosinophils % 6.7 H, Basophils % 0.3, Absolute Granulocytes 5.8, Segmented Neutrophils 73, Absolute Lymphocytes 1.5, Lymphocytes 15 L, Monocytes 9, Absolute Monocytes 0.8 H, Eosinophils 3, Absolute Eosinophils 0.6, Absolute Basophils 0, Platelet Estimate VERIFIED BY SMEAR, Polychromasia 1+, Anisocytosis 1+, PUBS MCHC 32.5 L, Fld Total RBCs Counted 100 Orders Radiology Findings: SERVICE DATE: 08/19/16 EXAM TYPE: CAT - CT ABD & PELVIS W/O IV CONTRAST FINDINGS: LUNG BASES: No fluid collection in the visualized lower chest. Evidence of previous sternotomy. There is a small sliding-type hiatal hernia. There are some scattered tiny nonspecific lung base opacities. LIVER, GALLBLADDER, AND BILIARY TREE: There are at least 2 tiny circumscribed low attenuating liver lesions. These are unchanged and may represent cysts. There is no distention of the gallbladder. There is no opaque gallstone. There is no significant biliary dilation. PANCREAS: No convincing abnormality. SPLEEN: The spleen is not enlarged. No focal abnormality. ADRENAL GLANDS: Mild diffuse prominence without a suspicious mass KIDNEYS AND URETERS: Atrophic left kidney. There are some round low attenuating left renal masses. There may be some faint hyperdensity in the medial upper left kidney. No significant dilation of the urinary collecting system on either side. BLADDER: The bladder is not well-distended. No focal abnormality. GASTROINTESTINAL TRACT: No localized area of colonic wall thickening. The appendix is normal. There is no significant small bowel dilation. The stomach is not distended. There is a sliding-type hiatal hernia. ABDOMINAL WALL: No significant hernia is appreciated. LYMPH NODES: There are no measurably enlarged abdominal or pelvic lymph nodes. There is no free intraperitoneal fluid. There is no evidence of a retroperitoneal hemorrhage. The iliac is an psoas muscles are within normal limits and symmetric. There is no large body wall hematoma. VASCULAR: There is extensive atherosclerotic calcification. There is no abdominal aortic aneurysm. There is no evidence of a retroperitoneal hemorrhage. There is extensive atherosclerotic plaque including the superior mesenteric artery. PELVIC VISCERA: No suspicious abnormality of the uterus or adnexa. OSSEOUS STRUCTURES: There is marked volume loss at L1 with some bone protruding into the spinal canal. There is no surrounding hematoma. This was not present in 2010. IMPRESSION: No retroperitoneal hemorrhage. No intraperitoneal fluid. Atrophic left kidney. There is a small sliding-type hiatal hernia. There is marked deformity of L1. Chronicity uncertain. On imaging basis this appears chronic but I have no previous studies to confirm. This was not present in 2009 Assessment/Plan Assessment: 71-year-old female with a past medical history of aortic replacement with metallic valve, currently on Coumadin, hypertension, atrial flutter, CHF, CKD stage III, peripheral vascular disease status post left carotid endarterectomy with internal jugular weaning patch angioplasty in July 2015 was sent in by her office analyst Dr. Dunham for evaluation. She was seen in the ER yesterday and was found to be anemic requiring 2 units of blood. She did negative guaiac exam at that time and denied any black or tarry stools. Vitals at the time of admission blood pressure 131/63, respiratory rate 20, pulse 82, afebrile saturating 98% on room air. Labs pertinent for white blood cell count of 8700, and normocytic anemia with an H&H of 9.9/30.4, platelet count 212,000. Serum chemistries revealed a sodium 141, potassium 4.4, bicarbonate 24, anion gap of 11, BUN 31 with a creatinine of 1.6 (baseline is around 1.4-1.6), LFTs showed a total bili of 0.6, AST/L2 , alkaline phosphatase of 03/08/1947 for septic troponin at 0.29. Her INR was subtherapeutic at 1.37. Last echocardiogram was done in September 2014 showed mildly hypokinetic septum, abnormal septal motion consistent with post operative state, no other regional wall motion abnormalities, left ventricular ejection fraction at 55%. 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 Since her labs came back with elevated troponin, case was discussed with -given lab findings he does not believe patient requires urgent colonoscopy. Case was discussed with Dr. Dunham agrees with plan, no heparin at this time. Assessment and plan Admit on Telemetry given elevated troponins. # Elevated troponins - EKG changes are chronic. - Trops trended down - Most likely 2/2 demand ischemia given anemia. - Continue anticoagulation. - F/U Echo - Follow up Cardiology consult. #Anemia Acute on chronic S/P 2 PRBC's yesterday. H&H today is stable. F/U peripheral smear. Irin studies cw iron deficiency anemia. No obvious source of bleeding identified, she was guaic negative and CT abdomen and Pelvis was done which showed no evidence of retroperitoneal bleed. Spoke with Dr. Roldan who recommends outpatient F/U for colonoscopy. Will call GI if she develops acute bleed. Continue to hold aspirin as she is on heparin CBC q8 hrs for now - next CBC @ 12:00pm type and cross match in the eventy she needs trasnfusion. Holding Losartan so that bloodpressure does not drop precipitiously #Aortic replacement with metallic valve Continue IV Heparin and bridge with Coumadin in AM. - DVT prophylaxis - On IV heparin - Diet - Heart healthy - Code Status Full Code Problem List: 1. Subtherapeutic international normalized ratio (INR) 2. Symptomatic anemia Pain Ratin Pain Location: n/a Pain Goal: Remain pain free Pain Plan: tyelnol Tomorrow's Labs & Rationales: cbc - monitor H&H, INR Consulting Request: Consulting Specialty: Gastroenterology
[2016-08-20 06:46] VITALS: BP 116/58
[2016-08-20 08:45] LABS: PT 26.9 SEC (9.4-12.5)
[2016-08-20 08:52] LABS: PTT > 120 SEC (25-37)
--- NOTE | 2016-08-20 09:46 | Patient Discharge Instructions ---
Discharge Instructions General Discharge Information Special Instructions: Please follow up with PCP on discharge. Please have your INR re-checked on 08/22, and f/up with band ripsaw operator. Please follow up with Gatsroenterologist within 7 days of discharge. Acute Coronary Syndrome Inclusion Criteria At DC or during hospital stay patient has or had the following: ACS DIAGNOSIS No Discharge Core Measures Meds if any: Prescribed or Continued at Discharge Meds if any: NOT Prescribed or Continued at Discharge Congestive Heart Failure Inclusion Criteria At DC or during hospital stay patient has or had the following: CHF DIAGNOSIS No Discharge Core Measures Meds if any: Prescribed or Continued at Discharge Meds if any: NOT Prescribed or Continued at Discharge Cerebrovascular accident Inclusion Criteria At DC or during hospital stay patient has or had the following: CVA/TIA Diagnosis No Discharge Core Measures Meds if any: Prescribed or Continued at Discharge Meds if any: NOT Prescribed or Continued at Discharge Venous thromboembolism Inclusion Criteria VTE Diagnosis No VTE Type NONE VTE Confirmed by (Test) NONE Discharge Core Measures - Per Current guidelines, there needs to be overlap - treatment for the first 5 days of Warfarin therapy. - If discharged on Warfarin prior to 5 days of - overlap therapy, the patient will need to be - assessed for post discharge needs including - *Post discharge parental anticoagulation - *Warfarin and/or parental anticoagulation education - *Follow up date to check INR post discharge At least 5 days overlap therapy as Inpatient No Meds if any: Prescribed or Continued at Discharge Note: Overlap Therapy is Warfarin and Anticoagulant Meds if any: NOT Prescribed or Continued at Discharge
[2016-08-20] MEDS ORDERED: FERROUS SULFAT325 M2 PO (09:48)
[2016-08-20 10:22] VITALS: BP 116/58
[2016-08-20 13:03] LABS: ABSOLUTE BASOPHIL COUNT 0.1 /CUMM (0.0-0.2); ABSOLUTE EOSINOPHIL COUNT 0.6 /CUMM (0.0-0.7); ABSOLUTE GRANULOCYTE CT 5.6 /CUMM (1.4-6.5); ABSOLUTE LYMPH COUNT 1.6 /CUMM (1.2-3.4); ABSOLUTE MONOCYTE COUNT 0.6 /CUMM (0.10-0.60); BASOPHIL % 0.9 % (0.0-2.0); EOSINOPHIL % 7.4 % (0-5); GRANULOCYTE % 65.8 % (42.2-75.2); MEAN CORPUSCULAR HGB 26.2 PG (27.0-31.0); MEAN CORPUSCULAR HGB CONC 31.9 G/DL (33.0-37.0); MEAN CORPUSCULAR VOLUME 82.3 FL (81.0-99.0); MEAN PLATELET VOLUME 10.3 FL (7.4-10.4); PLATELET COUNT 211 /CUMM (130-400); RBC DISTRIBUTION WIDTH 18.7 % (11.5-14.5); RED BLOOD CELL CT 3.89 /CUMM (4.20-5.40); WHITE BLOOD CELL COUNT 8.6 /CUMM (4.8-10.8)
--- NOTE | 2016-08-20 13:28 | Cons- Cardiology ---
General Information and HPI Consulting Request Date of Consult: 08/20/16 Requested By: IKE WESTFALL MD Reason for Consult: Anemia, prosthetic valve Source of Information: patient, old records History of Present Illness: This is a very pleasant 71 y/o female with a hx of CAD, mechanical AVR 2001 with single vessel RCA bypass, prior left CEA, CKD, PAF on AC, HTN, HFpEF, and HLD who presents to [facility] with anemia. Was recently feelig week and found to have anemia with elevated INR, got PRBCS in the ER and discharged; improved symptoms but was sent back for additional evaluation due to her need for continued AC. Has good exertional tolerance. Denies hematemesis/hematochezia/ dark stools. Denies any new chest pain, dyspnea, or palpitations. Compliant with medication regimen. On this presentation was noted to have slightly subtherapuetic INR and started on Heparin. Also noted to have mildly elevated troponin without symptoms. Ct scan was done (see below). On my bedside interview with the patient she offered no active complaints. Allergies/Medications Allergies: Coded Allergies: NO KNOWN ALLERGIES (07/17/15) Home Med List: Allopurinol 300 MG TABLET 1 TAB PO DAILY GOUT (Reported) Aspirin (Ecotrin*) 81 MG TABLET.DR 1 TAB PO DAILY HEART/BLOOD (Reported) Diltiazem HCl (Diltiazem 24HR ER) 240 MG CAP.ER.24H 1 CAP PO DAILY BP ( Reported) Ferrous Sulfate 325 MG (65 MG IRON) TABLET.DR 325 MG PO BID anemia Furosemide (Lasix) 40 MG TABLET 1 TAB PO DAILY DIURETIC (Reported) Losartan Potassium (Cozaar) 25 MG TABLET 1 TAB PO QPM HIGH BLOOD PRESSURE ( Reported) Metoprolol Succ XL (Toprol Xl) 50 MG TAB.ER.24H 1 TAB PO DAILY BP (Reported) Simvastatin (Zocor*) 40 MG TABLET 1 TAB PO QPM CHOLESTEROL (Reported) Warfarin Sodium (Coumadin) 2 MG TABLET 1 TAB PO DAILY anticoagulation ( Reported) Warfarin Sodium 4 MG TABLET 1 TAB PO AD BLOOD THINNER (Reported) Current Medications: Current Medications Sig/Darlene Start time Last Medication Dose Route Stop Time Status Admin Acetaminophen 650 MG Q6P PRN 08/19 1600 AC PO Acetaminophen/ 1 TAB Q6P PRN 08/19 1600 AC Hydrocodone Bitart PO Allopurinol 300 MG DAILY 08/20 1000 AC 08/20 PO 1022 Atorvastatin Calcium 20 MG 1700 08/19 1700 AC 08/19 PO 2051 Diltiazem HCl 240 MG DAILY 08/20 1000 AC 08/20 PO 1020 Ferrous Sulfate 325 MG BID 08/20 1000 AC 08/20 PO 1021 Furosemide 40 MG DAILY 08/20 1000 AC 08/20 PO 1021 Heparin Sodium/ 25,000 UNIT Q24H 08/19 1800 DC 08/19 Dextrose IV 2045 Dextrose/Water 500 ML Metoprolol Succinate 50 MG DAILY 08/20 1000 AC 08/20 PO 1022 Morphine Sulfate 4 MG Q4P PRN 08/19 1600 AC IV Warfarin Sodium 2 MG COUMADIN 1700 ONE 08/20 1700 AC PO 08/20 1701 Review of Systems Review of Systems: Review of systems as per HPI. The remainder of a 10 point review of systems was reviewed and was otherwise negative. 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 Family History Relations & Conditions If Any: SISTER MOTHER, . Relation not specified for: FH: hyperthyroidism Graves' disease Psychosocial History Where Do You Live? Home Who Do You Live With? self Services at Home: None Primary Language: Lao Smoking Status: Current Everyday Smoker (1/2 pack per day) ETOH Use: denies use Illicit Drug Use: denies illicit drug use Functional Ability ADLs Independent: dressing, eating, toileting, bathing. 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 Exam & Diagnostic Data Vital Signs and I&O Vital Signs Date Time Temp Pulse Resp B/P B/P Pulse O2 O2 Flow FiO2 Mean Ox Delivery Rate 08/20 1022 116/58 08/20 0646 98.0 68 18 116/58 97 Room Air 08/19 2229 98.9 73 20 106/56 96 Room Air 08/19 1712 75 18 122/58 96 08/19 1523 96.0 82 20 131/63 98 Room Air Intake & Output 0708/20 0808/20 0000 08/19 0808/19 0000 Intake Total 500 500 Output Total 350 Balance 500 150 Intake, IV 260 Intake, Oral 240 500 Output, Urine 350 Patient 157 lb 158 lb 162 lb Weight Weight Chair scale Reported by Patient Measurement Method Physical Exam: General: no apparent distress. Alert. Eyes: No obvious scleral icterus. HEENT: No jugular venous distention or abnormal jugular venous pulsations. Cardiovascular: Normal intensity S1/S2. Prosthetic valve sound noted Respiratory: Lungs clear to auscultation bilaterally. Abdomen: Soft, nontender with no guarding or rebound tenderness. Musculoskeletal: No clubbing or cyanosis noted, no edema Skin: No obvious rashes or ulcerations. Neurologic: No gross focal deficits noted. Lymph: No gross lymphadenopathy. Labs/Donald Results: Laboratory Tests 08/20 08/20 08/20 1205 0545 0410 Chemistry Troponin I (< 0.11 ng/ml) 0.28 *H Coagulation PT (9.4 - 12.5 SEC) 26.9 H INR (0.90 - 1.19) 2.59 H APTT (25 - 37 SEC) > 120 *H Hematology CBC w Diff Pending WBC Pending RBC Pending Hgb Pending Hct Pending MCV Pending MCH Pending RDW Pending Plt Count Pending MPV Pending PUBS MCHC Pending 08/20 08/19 0410 2145 Chemistry Sodium (137 - 145 mmol/L) 141 Potassium (3.5 - 5.1 mmol/L) 4.3 Chloride (98 - 107 mmol/L) 103 Carbon Dioxide (22 - 30 mmol/L) 29 Anion Gap (5 - 16) 9 BUN (7 - 17 mg/dL) 29 H Creatinine (0.5 - 1.0 mg/dL) 1.5 H Estimated GFR (>60 ml/min) 34 L BUN/Creatinine Ratio (7 - 25 %) 19.3 Troponin I (< 0.11 ng/ml) 0.30 *H Triglycerides (<150 mg/dL) 93 Cholesterol (<200 MG/DL) 144 LDL Cholesterol, Calc (65 - 129 mg/dL) 83 HDL Cholesterol (40 - 60 mg/dL) 43 Cholesterol/HDL Ratio (0.00 - 4.23 %) 3 Hematology CBC w Diff NO MAN DIFF REQ NO MAN DIFF REQ WBC (4.8 - 10.8 /CUMM) 8.5 8.2 RBC (4.20 - 5.40 /CUMM) 3.34 L 3.54 L Hgb (12.0 - 16.0 G/DL) 8.9 L 9.4 L Hct (37 - 47 %) 27.3 L 29.1 L MCV (81.0 - 99.0 FL) 81.7 82.3 MCH (27.0 - 31.0 PG) 26.5 L 26.5 L RDW (11.5 - 14.5 %) 18.4 H 18.8 H Plt Count (130 - 400 /CUMM) 189 204 MPV (7.4 - 10.4 FL) 9.5 9.4 Gran % (42.2 - 75.2 %) 56.7 61.7 Lymphocytes % (20.5 - 51.1 %) 23.9 19.2 L Monocytes % (1.7 - 9.3 %) 9.0 9.9 H Eosinophils % (0 - 5 %) 9.6 H 8.6 H Basophils % (0.0 - 2.0 %) 0.8 0.6 Absolute Granulocytes (1.4 - 6.5 /CUMM) 4.8 5.0 Absolute Lymphocytes (1.2 - 3.4 /CUMM) 2.0 1.6 Absolute Monocytes (0.10 - 0.60 /CUMM) 0.8 H 0.8 H Absolute Eosinophils (0.0 - 0.7 /CUMM) 0.8 0.7 Absolute Basophils (0.0 - 0.2 /CUMM) 0.1 0 PUBS MCHC (33.0 - 37.0 G/DL) 32.4 L 32.2 L 08/19 1339 Chemistry Sodium (137 - 145 mmol/L) 141 Potassium (3.5 - 5.1 mmol/L) 4.4 Chloride (98 - 107 mmol/L) 106 Carbon Dioxide (22 - 30 mmol/L) 24 Anion Gap (5 - 16) 11 BUN (7 - 17 mg/dL) 31 H Creatinine (0.5 - 1.0 mg/dL) 1.6 H Estimated GFR (>60 ml/min) 32 L BUN/Creatinine Ratio (7 - 25 %) 19.4 Glucose (65 - 99 mg/dL) 97 Calcium (8.4 - 10.2 mg/dL) 9.8 Phosphorus (2.5 - 4.5 mg/dL) 3.0 Magnesium (1.6 - 2.3 mg/dL) 2.1 Total Bilirubin (0.2 - 1.3 mg/dL) 0.6 AST (14 - 36 U/L) 24 ALT (9 - 52 U/L) 22 Alkaline Phosphatase (<127 U/L) 131 H Troponin I (< 0.11 ng/ml) 0.29 *H Total Protein (6.3 - 8.2 g/dL) 6.6 Albumin (3.5 - 5.0 g/dL) 4.0 Globulin (1.9 - 4.2 gm/dL) 2.6 Albumin/Globulin Ratio (1.1 - 2.2 %) 1.5 Coagulation PT (9.4 - 12.5 SEC) 14.3 H INR (0.90 - 1.19) 1.37 H APTT (25 - 37 SEC) 28 Hematology CBC w Diff MAN DIFF ORDERED WBC (4.8 - 10.8 /CUMM) 8.7 RBC (4.20 - 5.40 /CUMM) 3.71 L Hgb (12.0 - 16.0 G/DL) 9.9 L Hct (37 - 47 %) 30.4 L MCV (81.0 - 99.0 FL) 81.9 MCH (27.0 - 31.0 PG) 26.7 L RDW (11.5 - 14.5 %) 18.6 H Plt Count (130 - 400 /CUMM) 212 MPV (7.4 - 10.4 FL) 9.1 Gran % (42.2 - 75.2 %) 66.9 Lymphocytes % (20.5 - 51.1 %) 17.0 L Monocytes % (1.7 - 9.3 %) 9.1 Eosinophils % (0 - 5 %) 6.7 H Basophils % (0.0 - 2.0 %) 0.3 Absolute Granulocytes (1.4 - 6.5 /CUMM) 5.8 Segmented Neutrophils (42.2 - 75.2 %) 73 Absolute Lymphocytes (1.2 - 3.4 /CUMM) 1.5 Lymphocytes (20.5 - 51.1 %) 15 L Monocytes (1.7 - 9.3 %) 9 Absolute Monocytes (0.10 - 0.60 /CUMM) 0.8 H Eosinophils (0 - 5.0 %) 3 Absolute Eosinophils (0.0 - 0.7 /CUMM) 0.6 Absolute Basophils (0.0 - 0.2 /CUMM) 0 Platelet Estimate (ADEQUATE) VERIFIED BY SMEAR Polychromasia 1+ Anisocytosis 1+ PUBS MCHC (33.0 - 37.0 G/DL) 32.5 L Other Body Source Fld Total RBCs Counted (%) 100 Diagnostic Data EKG Results tracing personally reviewed, shows Sr at 71 bpm wit non-specific T wave inversions Other Results Telemetry tracings were personally reviewed and shows sinus rhythm and sinus bradycardia Abdominal CT No retroperitoneal hemorrhage. No intraperitoneal fluid. Atrophic left kidney. There is a small sliding-type hiatal hernia. There is marked deformity of L1. Chronicity uncertain. On imaging basis this appears chronic but I have no previous studies to confirm. This was not present in 2009 Assessment/Plan Assessment/Plan 1. Anemia with reportedly guaiac-negative stool, s/p recent transfusion 2. Minimal troponin elevation likely incidental finding versus mild demand ischemia 3. Hx of CAD with mechanical AVR 2001 with single vessel RCA bypass 4. Prior left CEA 5. CKD 6. PAF on AC 7. HTN/HLD 8. HFpEF, compensated Currently asymptomatic. Hemodynamically stable. Hg stable. Mild asymptomatic troponin elevation with flat curve likely incidental due to CKD versus mild demand ischemia given recent anemia. INR within goal range today. Guaic negative per report with no obvious bleed on CT. No events on telemetry. Ok for additional anemia work-up as outpatient from a cardiac standpoint. Continue coumadin with goal INR 2.5-3.5, recheck level on Monday. Follow-up with us next week. Return to ER via 911 with any new or worsening symptoms. Plan for Echo as outpatient. Last nuclear stress test was negative for obvious ischemia. Consider outpatient hematology consult. Case discussed with medical and GI attendings today. Edgardo Stapleton MD [facility] Consult Acknowledgment - Thank you for your consult request.
--- NOTE | 2016-08-23 14:23 | Discharge Summary ---
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 Dunham for evaluation. She was seen in the ER yesterday and was found to be anemic requiring 2 units of blood. She did have guaic negative stools at that time and denied any black or tarry stools. Vitals at the time of admission blood pressure 131/63, respiratory rate 20, pulse 82, afebrile saturating 98% on room air. Labs pertinent for white blood cell count of 8700, and normocytic anemia with an H&H of 9.9/30.4, platelet count 212,000. Serum chemistries revealed a sodium 141, potassium 4.4, bicarbonate 24, anion gap of 11, BUN 31 with a creatinine of 1.6 (baseline is around 1.4-1.6), LFTs showed a total bili of 0.6, AST/ALT 24/22 , alkaline phosphatase of 03/08/ with 1st set of troponin at 0.29. Her INR was subtherapeutic at 1.37. Last echocardiogram was done in September 2014 showed mildly hypokinetic septum, abnormal septal motion consistent with post operative state, no other regional wall motion abnormalities, left ventricular ejection fraction at 55%. 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 She was admitted to Telemetry given elevated troponins. The following problems were addressed: # Elevated troponins These were most likely 2/2 demand ischemia given anemia and underlying CKD. Her troponins plateaued. Her EKG remained unchanged and she was seen by the Cardiology service, who deemed it stable for her to have additional anemia workup as an outpatient and to continue Coumadin with goal INR 2.5-3.5, with a repeat checdk on Monday08/22/16. The patient was davised to follow up iwth her dialysis technician within a week of discharge, and will have an echo as an outpatient. Of note her last stress test was negative for ischemia. #Anemia Acute on chronic. She had already received trasnfusion with 2 PRBC's a day prior to admission. Her H&H was monitored which was stable. Of note, her iron studies were c/w iron deficiency anemia. She was guaic negative,and a CT Abdomen and Plevis w/o IV contrast was done to r/o retroperitoneal bleed. Spoke with Dr. Roldan who recommended outpatient F/U for colonoscopy. He also advised us to call GI if she develops acute bleed. We held aspirin as she was on heparin. Her H&H were moniotred q8 hrs and remained stable. She was discharged thenext day with outpatient followup with Dr. Cris kaiser anemia as well as GI. # Aortic replacement with metallic valve - She was started on IV heparin for anticoagulation given her hc of metallic aortic valve. - DVT prophylaxis - She was on IV heparin. Complications: None Allergies: Coded Allergies: NO KNOWN ALLERGIES (07/17/15) Significant Procedures: SERVICE DATE: 08/19/16 EXAM TYPE: CAT - CT ABD & PELVIS W/O IV CONTRAST FINDINGS: LUNG BASES: No fluid collection in the visualized lower chest. Evidence of previous sternotomy. There is a small sliding-type hiatal hernia. There are some scattered tiny nonspecific lung base opacities. LIVER, GALLBLADDER, AND BILIARY TREE: There are at least 2 tiny circumscribed low attenuating liver lesions. These are unchanged and may represent cysts. There is no distention of the gallbladder. There is no opaque gallstone. There is no significant biliary dilation. PANCREAS: No convincing abnormality. SPLEEN: The spleen is not enlarged. No focal abnormality. ADRENAL GLANDS: Mild diffuse prominence without a suspicious mass KIDNEYS AND URETERS: Atrophic left kidney. There are some round low attenuating left renal masses. There may be some faint hyperdensity in the medial upper left kidney. No significant dilation of the urinary collecting system on either side. BLADDER: The bladder is not well-distended. No focal abnormality. GASTROINTESTINAL TRACT: No localized area of colonic wall thickening. The appendix is normal. There is no significant small bowel dilation. The stomach is not distended. There is a sliding-type hiatal hernia. ABDOMINAL WALL: No significant hernia is appreciated. LYMPH NODES: There are no measurably enlarged abdominal or pelvic lymph nodes. There is no free intraperitoneal fluid. There is no evidence of a retroperitoneal hemorrhage. The iliac is an psoas muscles are within normal limits and symmetric. There is no large body wall hematoma. VASCULAR: There is extensive atherosclerotic calcification. There is no abdominal aortic aneurysm. There is no evidence of a retroperitoneal hemorrhage. There is extensive atherosclerotic plaque including the superior mesenteric artery. PELVIC VISCERA: No suspicious abnormality of the uterus or adnexa. OSSEOUS STRUCTURES: There is marked volume loss at L1 with some bone protruding into the spinal canal. There is no surrounding hematoma. This was not present in 2010. IMPRESSION: No retroperitoneal hemorrhage. No intraperitoneal fluid. Atrophic left kidney. There is a small sliding-type hiatal hernia. There is marked deformity of L1. Chronicity uncertain. On imaging basis this appears chronic but I have no previous studies to confirm. This was not present in 2010 Disposition Summary Disposition Principal Diagnosis: Anemia Additional Diagnosis: Hx of metallic aortic valve on Coumadin Hypertension Chronic diastolic CHF CKD Stage III Peripheral vascular disease s/p left carotid endarterectomy Discharge Disposition: home or self care Discharge Instructions General Discharge Information Code Status: Full Code Patient's Diet: Heart healthy Patient's Activity: As tolerated. Follow-Up Instructions/Appts: Please follow up with your primary care physician in one week. Please follow up with your dialysis technician in one week. Please have your INR re- checked on 08/22. Please follow up with your GI doctor in one week. Medications at Discharge Discharge Medications: Continue taking these medications: Simvastatin (Zocor*) 40 MG TABLET 1 Tablet ORAL Every night Comments: NOT GIVEN TO PT Losartan Potassium (Cozaar) 25 MG TABLET 1 Tablet ORAL Every night Comments: NOT GIVEN IN HOSPITAL Aspirin (Ecotrin*) 81 MG TABLET.DR 1 Tablet ORAL DAILY Comments: NOT GIVEN TO PT Metoprolol Succ XL (Toprol Xl) 50 MG TAB.ER.24H 1 Tablet ORAL DAILY Comments: Last Taken: 08/20/16 Time: 10:22 Diltiazem HCl (Diltiazem 24HR ER) 240 MG CAP.ER.24H 1 Capsule ORAL DAILY Comments: Last Taken: 08/20/16 Time: 10:20 Warfarin Sodium (Coumadin) 2 MG TABLET 1 Tablet ORAL DAILY Qty = 60 Comments: Last Taken: 08/20/16 Time: 14:50 Warfarin Sodium (Warfarin Sodium) 4 MG TABLET 1 Tablet ORAL As Directed Qty = 90 Comments: NOT GIVEN TO PT Furosemide (Lasix) 40 MG TABLET 1 Tablet ORAL DAILY Comments: Last Taken: 08/20/16 Time: 10:21 Allopurinol (Allopurinol) 300 MG TABLET 1 Tablet ORAL DAILY Qty = 30 Comments: Last Taken: 08/20/16 Time: 10:22 Start taking the following new medications: Ferrous Sulfate (Ferrous Sulfate) 325 MG (65 MG IRON) TABLET. 325 Milligram ORAL TWICE DAILY Qty = 30 No Refills Copies To: CHRISTIANO WILLIS,KOBE Elias Attending MD Review Statement Documenting Attending: YUKI WILLIS,MARY MIRZA MD,MARY
== END 2016-08-20 15:00 | DRG 812 ==
LOC: ERH 13:06 → ERHI 16:04 → ENRESERV 16:54 → ENTRNSPT 17:38 → EDTRNSPTSTS 17:56 → 1NO 18:11 → CMPTRNSPT 18:18 → 1NO 20:05 → ENPENDDIS 08-20 13:43 → 1NO 08-20 15:00
PROVIDERS: Internal Medicine Infectious Disease; Physician Assistant Medical; ADMIT Internal Medicine
PROC: 30233N1 Transfusion of Nonautologous Red Blood Cells into Peripheral Vein, Percutaneous Approach (ICD-10-PCS; principal; 2016-08-18)
DX: D62 Acute posthemorrhagic anemia (principal); I13.0 Hypertensive heart and chronic kidney disease with heart failure and stage 1 through stage 4 chronic kidney disease, or unspecified chronic kidney disease; I50.32 Chronic diastolic (congestive) heart failure; I24.8 Other forms of acute ischemic heart disease; I48.92 Unspecified atrial flutter; D50.9 Iron deficiency anemia, unspecified; Z95.2 Presence of prosthetic heart valve; Z79.01 Long term (current) use of anticoagulants; N18.3 Chronic kidney disease, stage 3 (moderate); I73.9 Peripheral vascular disease, unspecified; I25.10 Atherosclerotic heart disease of native coronary artery without angina pectoris; I48.0 Paroxysmal atrial fibrillation; J44.9 Chronic obstructive pulmonary disease, unspecified; M10.9 Gout, unspecified; F17.210 Nicotine dependence, cigarettes, uncomplicated; E78.5 Hyperlipidemia, unspecified; R79.1 Abnormal coagulation profile
CPT/HCPCS: 1NSP; 36415; 74176; 82436; 93005; 93010; 99291; J1644; J7060